=== PATIENT | female | born 1955 | race Caucasian/White ===

== ENCOUNTER 2022-10-22 12:07 | Emergency (ER) | payer OTHER, MEDICARE, SELFPAY ==
[2022-10-22 12:37] VITALS: BP 151/74; PULSE 89; RESP 18; TEMP 36.1; O2SAT 99
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
== END 2022-10-22 13:15 | disposition home or self-care (01) ==
PROVIDERS: Emergency Provider Nurse Practitioner Family; PCP Family Medicine
DX: H93.13 Tinnitus, bilateral (principal); R42 Dizziness and giddiness
CPT/HCPCS: 99213; G0463

== ENCOUNTER 2023-02-19 13:15 | Outpatient (RCR) | payer OTHER, SELFPAY ==
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
== END 2023-02-20 08:45 | disposition home or self-care (01) ==
LOC: ANHHIPT 13:15
PROVIDERS: PCP Physician Assistant Medical; Visit Provider Physician Assistant Medical
DX: S06.9XAD Unspecified intracranial injury with loss of consciousness status unknown, subsequent encounter (principal); H93.19 Tinnitus, unspecified ear; H81.12 Benign paroxysmal vertigo, left ear
CPT/HCPCS: 95992; 97110; 97112; 97162

== ENCOUNTER 2023-08-15 10:30 | Outpatient (RCR) | payer OTHER, SELFPAY ==
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
--- NOTE | 2023-05-22 17:09 | OPREHPOC ---
Outpatient Therapy Plan of Care This is a Multidisciplinary Plan of Care that may contain components documented by all disciplines (PT, OT, and ST.) PT Problem 1 PT Problem #1 Knowledge Deficit PT Goal 1 Goal Pt will be independent in HEP Target Visit 8 PT Problem 2 PT Problem #2 Impaired Functional ADLs PT Goal 1 Goal Pt will report ability to don socks with minimal symptoms or modification Target Visit 16 PT Problem 3 PT Problem #3 Impaired Sensation PT Goal 1 Goal Pt will report decreased dizziness by 50% Target Visit 8 PT Goal 2 Goal Pt will report decresaed dizziness by 75% PT Problem 4 PT Problem #4 Impaired Balance PT Goal 1 Goal Pt will demo improve static balance with eyes closed by 5 seconds in tandem stance
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
--- NOTE | 2023-07-16 11:31 | PTOPPROG ---
Assessment and note entered by Andria Cabezas, PT Assessment Status Progress Report Diagnosis dizziness and giddiness Therapy condition cervicalgia, stiffness cervical spine Onset Oct 18 2022 Subjective Information Pt reports her dizziness isn't bothering her at night anymore but is still not sleeping. Is just not falling asleep. Reports once is asleep is able to sleep. But is luck if gets 6 hours of sleep still. Is doing better leaning forward to get socks and shoes on. Deep bends are still difficult Walking her grandson ran up to her and tripped and she was able to keep both of them from falling. Still having ringing in the ears just as bad as ever Self-perceived improvement feels 60% better overall. Assessment PT Clinical Summary Pt has attended therapy consistently for vestibular rehab. Reports 60% improvement overall, has performed multiple electrotyper and habituation exercises, balance activities and eye exercises. Pt reports still having wooziness and difficulty with forward leaning. Cervical spine evaluated for possibility of cervicogenic dizziness as cervical torsion test to right was positive and pt demos restrictions in ROM and abnormal postures as well as increased resting muscle tone. Thus patient would benefit from continued therapy to address possible cervicogenic cause of dizziness. Plan of Care Interventions Electrical Stimulation,Gait Training,Hot Pack/Cold Pack,Manual Therapy,Neuro Re-education,Patient/ Caregiver Educati,Therapeutic Activities, Therapeutic Exercise PT Services Indicated Yes Treatment Frequency and 2x weekly 4 weeks Duration These treatments will address the objective and functional deficits as defined above. The patient will be advanced safely and appropriately in order for the patient to progress towards his/her prior level of function. Additional exercises will be introduced and as well as a comprehensive home exercise program upon discharge, if needed, ?to ensure carryover of functional gains achieved in the clinic. This treatment plan has been reviewed and agreement upon by the patient.
--- NOTE | 2023-08-15 11:08 | PTOPDC ---
Assessment and note entered by Andria Cabezas, PT Assessment Status Discharge Diagnosis dizziness and giddiness Onset Oct 18 2022 Subjective Information Pt reports dizziness, imbalance all gone . Hasn't had any wooziness since was bending over and putting things in the round and resolved very quickly. Is doing well with balance and eye exercises. Tandem with eyes closed is still hard. Reported Pain Level Pain Score 5: Self Report (Ear ringing) Assessment PT Clinical Summary Pt has attended therapy consistently for dizziness /giddiness that appeared cervicogenic in nature in addition to vestibular system. Pt reports today her symptoms of dizziness and wooziness are completely resolved. She has met all her therapy related goals with exception of eyes closed balance in tandem which she has for her homework. Pt HEP was updated and pt was discharged for meeting her functional and personal goals.
== END 2023-08-19 11:56 | disposition home or self-care (01) ==
LOC: ANHHIPT 10:30
PROVIDERS: PCP Physician Assistant Medical
DX: R42 Dizziness and giddiness (principal)
CPT/HCPCS: 97012; 97014; 97110; 97112; 97140; 97162; 97750; G0283

== ENCOUNTER 2024-06-30 11:00 | Outpatient (RCR) | payer OTHER, SELFPAY ==
--- NOTE | 2024-04-06 16:53 | PTOPEVAL1 ---
Assessment and note entered by Coty Colbert, PT Evaluation Information Assessment Status Evaluation Diagnosis Bilateral knee pain Therapy Conditions Weakness, pain, gait impairments Onset approx 1 month ago Subjective Information Pt reports increased in pain level to B knees, which is worse with standing, going up and down stairs. Uses ice and elevation to relieve the pain , occasional ibuprofen when the pain is too bad . Cutting daily walking distance and time due to sharp and achy pains. states that L knee feels like it locks and would not straighten as much as the R knee. Feels like it would buckle, one day its one knee and another day its the other knee. Reported Pain Level Pain Score 4,4: Self Report Assessment PT Clinical Summary Pt is a 69 female pt who presents to therapy with increased pain to B knees L > R, mild swelling to L knee; significant reduction in joint mobility, weakness, balance and gait impairments impacting her ability in going up/down stairs, and general ambulation task secondary to pain. Pt will benefit from skilled PT to improve independent functional mobility and reduce risk for falls. Plan of Care Interventions Electrical Stimulation,Gait Training,Manual Therapy,Neuro Re-education,Patient/Caregiver Education,Therapeutic Activities,Therapeutic Exercise PT Services Indicated Yes Treatment Frequency and 2-3x/wk x 15 visits Duration These treatments will address the objective and functional deficits as defined above. The patient will be advanced safely and appropriately in order for the patient to progress towards his/her prior level of function. Additional exercises will be introduced and as well as a comprehensive home exercise program upon discharge, if needed, ?to ensure carryover of functional gains achieved in the clinic. This treatment plan has been reviewed and agreement upon by the patient.
--- NOTE | 2024-05-13 14:50 | PTOPPROG ---
Assessment and note entered by Coty Colbert, PT Re-Eval Information Assessment Status Progress Diagnosis Bilateral knee pain ICD-10 Condition Codes (PT) M25.561,Pain in left knee M25.562,R26.9 Onset approx 1 month ago Subjective Information Pt reports increased in pain today, denies doing anything that might've aggravated it, daily walking routine is more difficult today. Assessment PT Clinical Summary Pt demos good progress with therapy, noted gains in strength, flexibility, core and hip stabilization. However, her knee pain has a flare up affecting his ambulation and standing activities. She will benefit from continued skilled therapy for pain management and improve standing balance and tolerance for safety in performing indep ambulation. Plan of Care Interventions Check Out for Orthotic/Pr,Electrical Stimulation, Gait Training,Hot Pack/Cold Pack,Intermittent Compression,Manual Therapy,Neuro Re-education, Patient/Caregiver Education,Therapeutic Activities, Therapeutic Exercise,Ultrasound Other Interventions IASTM PT Services Indicated Yes Treatment Frequency and 1-2x/wk x 10 visits Duration These treatments will address the objective and functional deficits as defined above. The patient will be advanced safely and appropriately in order for the patient to progress towards his/her prior level of function. Additional exercises will be introduced and as well as a comprehensive home exercise program upon discharge, if needed, ?to ensure carryover of functional gains achieved in the clinic. This treatment plan has been reviewed and agreement upon by the patient.
--- NOTE | 2024-05-20 15:09 | PCPTNOTE ---
Addendum: LATE ENTRY for treatment on 04/22/2024 Thera ex: -seated hamstrings stretches x 20 sec hold x 3 -unilateral bent knee fall outs x 20 each -sidelying straight lateral leg raises x 20 each -seated LAQs with ball squeezes x 20 each LE -wall squats attempted, able to perform 2, unable to continue due to discomfort -sit <> stand without BUE support x 5 -standing gastrocs stretches x 1 min hold x 3 Gait Training: -Gait training with heel lift trial on LLE amb on level surfaces 60ft x 2 around the gym without AD, cues for postural correction and weight shifting. Pt reports increased discomfort and does not want to wear the heel lift. -up/down 4 step stairs with B HRs, instructed in going sideways with cues for proper limb advancement and postural correction, core activation E-stim: Electrode placement: B knees. Stimulation Type: Premodulated Equipment setting: preset 1 Treatment Duration: 15 min In conjunction with: ice Reason for treatment: supine position elevated on pillows, nerve radiculopathy, pain management, soft tissue spasm/tightness Response for treatment: reduce pain, reduce edema, reduce soft tissue tightness/spasm
--- NOTE | 2024-06-28 16:54 | PTOPPROG ---
Assessment and note entered by Coty Colbert, PT Re-Eval Information Assessment Status Progress Diagnosis Bilateral knee pain ICD-10 Condition Codes (PT) M25.561,Pain in left knee M25.562,Difficulty Walking R26.2,R26.9 Onset approx 1 month ago Subjective Information Pt received gel injections and fluid removal of both knees which significantly improved pain levels. Stairs cont to be the most challenging task, standing is still limited to < 10 min. Assessment PT Clinical Summary Pt demos gains in strength and mobility after attending 14 sessions of Physical Therapy. However , she continue to demo instability and compensatory gait deviation to B knees when ambulating on uneven surfaces. She would like to continue further therapy visits to focus on gait training and balance to improve safety and prepare for her upcoming trip to [place] in July. Plan of Care Interventions Check Out for Orthotic/Pr,Electrical Stimulation, Gait Training,Hot Pack/Cold Pack,Intermittent Compression,Manual Therapy,Neuro Re-education, Patient/Caregiver Education,Therapeutic Activities, Therapeutic Exercise,Ultrasound Other Interventions IASTM PT Services Indicated Yes Treatment Frequency and 1-2x/wk x 10 visits Duration These treatments will address the objective and functional deficits as defined above. The patient will be advanced safely and appropriately in order for the patient to progress towards his/her prior level of function. Additional exercises will be introduced and as well as a comprehensive home exercise program upon discharge, if needed, ?to ensure carryover of functional gains achieved in the clinic. This treatment plan has been reviewed and agreement upon by the patient.
--- NOTE | 2024-07-07 12:04 | PCPTNOTE ---
This treatment is being continued on visit number [id number]. Please see documentation on both accounts to view progress. Completed interventions, outcomes, and problems have been marked as Inactive to facilitate the copying of the Care plan routine for recurring accounts.
== END 2024-07-05 23:59 | disposition home or self-care (01) ==
LOC: ANHHIPT 11:00
PROVIDERS: PCP Physician Assistant Medical; Visit Provider Physician Assistant Medical
DX: M25.561 Pain in right knee (principal); M25.562 Pain in left knee
CPT/HCPCS: 97014; 97016; 97110; 97116; 97140; 97161; 97530; 97750; G0283

== ENCOUNTER 2024-08-04 10:45 | Outpatient (RCR) | payer OTHER, SELFPAY ==
--- NOTE | 2024-07-07 12:02 | PCPTNOTE ---
The treatment documented on this account is a continuation of the treatment documented on visit number [id number]. Please see documentation on both accounts to view progress. The Plan of Care has been transitioned and updated within the new [id number]. I have addressed and agree with the discipline specific Problems, Interventions, and Goals for the current certification period. Completed interventions, outcomes, and problems have been marked as Inactive to facilitate the copying of the Care plan routine for recurring accounts.
== END 2024-08-04 14:03 | disposition home or self-care (01) ==
LOC: ANHHIPT 10:45
PROVIDERS: PCP Physician Assistant Medical; Visit Provider Physician Assistant Medical
DX: M25.561 Pain in right knee (principal); M25.562 Pain in left knee
CPT/HCPCS: 97014; 97110; 97140; 97530; G0283

== ENCOUNTER 2025-01-19 09:15 | Outpatient (RCR) | payer OTHER, SELFPAY ==
--- NOTE | 2024-11-25 12:18 | PTOPEVAL1 ---
Assessment and note entered by Coty Colbert, PT Evaluation Information Assessment Status Evaluation Subjective Information Pt c/o pain to L knee, underwent TKR 11/02/2024. Feeling stiffness, tightness when bending, prolonged standing and walking increases discomfort to the back of the thigh, feeling sore. She is able to perform functional tasks but in a slower pace and some difficulty. Yesterday is her first day back to walking at [facility] approx 30 min, was using 4WW initially after surgery, transitioned to cane a week and a half ago. Reported Pain Level Pain Score 2: Self Report Assessment PT Clinical Summary Pt presents to therapy for evaluation and treatment due to chronic OA of bilateral knees s/p L TKR on 11/02/2024. Demos significant limitation to active ROM and strength, balance and gait impairments requiring assistive device for safety with ambulation both for home and community. She will greatly benefit from skilled PT program to improve joint mobility, functional strength, improve stability, balance and gait in order to safely perform IADLs and community mobility indep. Plan of Care Interventions Check Out for Orthotic/Prosthetic,Electrical Stimulation,Gait Training,Hot Pack/Cold Pack, Intermittent Compression Pump,Manual Therapy,Neuro Re-education,Patient/Caregiver Education, Therapeutic Activities,Therapeutic Exercise,Other Other Interventions Patricioing, [facility] PT Services Indicated Yes Treatment Frequency and 2x/wk x 18 visits Duration These treatments will address the objective and functional deficits as defined above. The patient will be advanced safely and appropriately in order for the patient to progress towards his/her prior level of function. Additional exercises will be introduced and as well as a comprehensive home exercise program upon discharge, if needed, ?to ensure carryover of functional gains achieved in the clinic. This treatment plan has been reviewed and agreement upon by the patient.
--- NOTE | 2024-12-28 11:06 | PTOPPROG ---
Assessment and note entered by Coty Colbert, PT Progress Information Assessment Status Progress Diagnosis Z96.652 ICD-10 Condition Codes (PT) Pain in right knee M25.561,Pain in left knee M25. 562,Difficulty Walking R26.2,Abnormalities of gait and mobility R26.9,Aftercare following joint replacement surgery Z47.1 Subjective Information Pt reports movement is getting better but continue to feel stiff in the morning, pain with pressure when lying on the L side. Assessment PT Clinical Summary Pt has made good progress with therapy, demos gains in strength and mobility, improvement noted in the LEFS score from 33 moderate functional limitation to 56 indicating mild functional limitation. Noted improved gait pattern and independence without using a SC within household distances; Pt also partially met goals (STGs). However she continue to demo lacking stability and standing tolerance at this time, continue to demo deficits in active knee flexion and quads flexibility, therefore she would greatly benefit from continued skilled PT intervention to address current deficits and meet established correction goals (LTGs). Plan of Care Interventions Check Out for Orthotic/Prosthetic,Electrical Stimulation,Gait Training,Hot Pack/Cold Pack, Intermittent Compression Pump,Manual Therapy,Neuro Re-education,Patient/Caregiver Education, Therapeutic Activities,Therapeutic Exercise,Other Other Interventions Taping, IAST[facility] PT Services Indicated Yes Treatment Frequency and 2x/wk x 10 visits Duration These treatments will address the objective and functional deficits as defined above. The patient will be advanced safely and appropriately in order for the patient to progress towards his/her prior level of function. Additional exercises will be introduced and as well as a comprehensive home exercise program upon discharge, if needed, ?to ensure carryover of functional gains achieved in the clinic. This treatment plan has been reviewed and agreement upon by the patient.
--- NOTE | 2025-01-19 17:44 | PTOPDC ---
Assessment and note entered by Coty Colbert, PT Discharge Information Assessment Status Discharge Diagnosis Z96.652 ICD-10 Condition Codes (PT) Pain in right knee M25.561,Pain in left knee M25. 562,Difficulty Walking R26.2,Abnormalities of gait and mobility R26.9,Aftercare following joint replacement surgery Z47.1 Subjective Information Pt reports movement is getting better but continue to feel stiff in the morning, pain with pressure when lying on the L side. Reported Pain Level Pain Score 0: Self Report Assessment PT Clinical Summary Pt demos excellent progress with therapy for post op L TKA. Reports significant improvement in mobility and reduction in pain and swelling. Improved functional mobility with LEFS score of 69 . However, she continues to demo gait impairments secondary to R knee pain that is due for replacement. She will have an Ortho appointment sometime in March 2025. Pt is agreeable to DC at this time, reporting good compliance with pool exercises and daily stretches. Skilled PT discontinued. Plan of Care PT Services Indicated No
== END 2025-01-20 10:46 | disposition home or self-care (01) ==
LOC: ANHHIPT 09:15
PROVIDERS: PCP Physician Assistant Medical; Visit Provider Orthopaedic Surgery
DX: Z47.1 Aftercare following joint replacement surgery (principal); Z96.652 Presence of left artificial knee joint
CPT/HCPCS: 97016; 97110; 97112; 97116; 97140; 97161; 97530; 97750

== ENCOUNTER 2025-07-07 08:00 | Outpatient (RCR) | payer OTHER, SELFPAY ==
--- NOTE | 2025-04-27 13:36 | PTOPEVAL1 ---
Assessment and note entered by Andria Cabezas, PT Evaluation Information Assessment Status Evaluation Diagnosis S/P R knee replacement z96.651 ICD-10 Condition Codes (PT) Pain in right knee M25.561,Difficulty Walking R26. 2,Abnormalities of gait and mobility R26.9, Weakness R53.1,Encounter for other orthopedic aftercare Z47.89,Aftercare following joint replacement surgery Z47.1 Onset April 05, 2025 Subjective Information Pt reports this total knee is worse than her left one with bruising, swelling, and pain. Went home with a pain pump for a week. Had 2 weeks of home health, just graduated to cane from walker. Pt reports only takes her prescription for night time to sleep if she has been doing too much. Otherwise is using OTC pain medication. Is using ice once every couple of days Reported Pain Level Pain Score 3: Self Report Assessment PT Clinical Summary Pt is known to therapist from prior diagnosis and prior knee surgery on her LLE. Today she presents with a single point cane for ambulation with mild/ moderate deviation including decreased weight shift and stance time on RLE. She shows decreased ROM flexion especially (passive ROM 5-80), decreased strength quads with extensor lag, mild swelling, and moderate levels of pain. Pt will greatly benefit from physical therapy in order to address deficits and meet patient functional goals . Plan of Care Interventions Electrical Stimulation,Gait Training,Hot Pack/Cold Pack,Intermittent Compression Pump,Manual Therapy ,Neuro Re-education,Patient/Caregiver Education, Therapeutic Activities,Therapeutic Exercise,Self- Care/Home Management,Other Other Interventions Taping PT Services Indicated Yes Treatment Frequency and 1-3x weekly x 20 visits Duration These treatments will address the objective and functional deficits as defined above. The patient will be advanced safely and appropriately in order for the patient to progress towards his/her prior level of function. Additional exercises will be introduced and as well as a comprehensive home exercise program upon discharge, if needed, ?to ensure carryover of functional gains achieved in the clinic. This treatment plan has been reviewed and agreement upon by the patient.
--- NOTE | 2025-04-27 13:36 | OPREHPOC ---
Outpatient Therapy Plan of Care This is a Multidisciplinary Plan of Care that may contain components documented by all disciplines (PT, OT, and ST.) PT Problem 1 PT Problem #1 Knowledge Deficit PT Goal 1 Goal / Goal Update Pt will be independent in HEP Pt will verbalize understanding of diagnosis and prognosis Target Visit 10 PT Problem 2 PT Problem #2 Pain PT Goal 1 Goal / Goal Update Pt will report lowest pain rating at 0/10 to show improvement in overall discomfort Target Visit 10 PT Goal 2 Goal / Goal Update Pt will report greatest pain level at 3/10 or less to improve ADLs and activities Target Visit 20 PT Problem 3 PT Problem #3 Impaired Range of Motion PT Goal 1 Goal / Goal Update Pt will demonstrate passive ROM 0-100 right knee for improved mobility Target Visit 10 PT Goal 2 Goal / Goal Update Pt will demo AROM 0-120 right knee for improved mobility Target Visit 20 PT Problem 4 PT Problem #4 Impaired Gait PT Goal 1 Goal / Goal Update Pt will show gait equal stance time and step length R/L with or without AD Target Visit 10 PT Goal 2 Goal / Goal Update Pt will show normalized gait 2 min walk of 240 ft or greater without AD to return to PLOF Target Visit 20
--- NOTE | 2025-05-27 12:30 | PTOPPROG ---
Assessment and note entered by Andria Cabezas, PT Evaluation Information Assessment Status Progress Diagnosis S/P R knee replacement z96.651 ICD-10 Condition Codes (PT) Pain in right knee M25.561,Difficulty Walking R26. 2,Abnormalities of gait and mobility R26.9, Weakness R53.1,Encounter for other orthopedic aftercare Z47.89,Aftercare following joint replacement surgery Z47.1 Onset April 05, 2025 Subjective Information Reports rolling over last night hurt her knee. States usually has difficulty with this for rearranging pillows but last night something really hurt. Stayed sore after that, ended up getting up and taking tylenol for this. After that it was uncomfortable no matter which way was positioned. Normally was not requiring OTC medication daily. Most days doesn't need pain medication. Report pain around the knee cap today. Reports prior to that was able to walk around the [employer] without issue. Assessment PT Clinical Summary Pt has attended therapy consistently post total knee replacement, and shows multiple areas of improvement. Her pain reduced very quickly and maintained low levels until last night when she was rolling over in bed. Appears to be a mild muscle strain, was already improving by the time got to therapy the next day. Pt shows increased ROM from passive 5-75 to passive 0-107, quads muscle from 3- to 3+/5, and her 2 min walk test went from 196 to 280 ft. Pt has met multiple short term goals but has yet to meet all her longterm goals. Thus patient will benefit from continued therapy to continue progression and obtain maximal independence with least amount of pain. Plan of Care Interventions Electrical Stimulation,Gait Training,Hot Pack/Cold Pack,Intermittent Compression Pump,Manual Therapy ,Neuro Re-education,Patient/Caregiver Education, Therapeutic Activities,Therapeutic Exercise,Self- Care/Home Management,Other Other Interventions Taping PT Services Indicated Yes Treatment Frequency and Cont 2x weekly x 10 visits Duration These treatments will address the objective and functional deficits as defined above. The patient will be advanced safely and appropriately in order for the patient to progress towards his/her prior level of function. Additional exercises will be introduced and as well as a comprehensive home exercise program upon discharge, if needed, ?to ensure carryover of functional gains achieved in the clinic. This treatment plan has been reviewed and agreement upon by the patient.
--- NOTE | 2025-05-27 12:30 | OPREHPOC ---
Outpatient Therapy Plan of Care This is a Multidisciplinary Plan of Care that may contain components documented by all disciplines (PT, OT, and ST.) PT Problem 1 PT Problem #1 Knowledge Deficit PT Goal 1 Goal / Goal Update Pt will be independent in HEP Pt will verbalize understanding of diagnosis and prognosis Target Visit 10 Progress Met PT Problem 2 PT Problem #2 Pain PT Goal 1 Goal / Goal Update Pt will report lowest pain rating at 0/10 to show improvement in overall discomfort Target Visit 10 Progress Met PT Goal 2 Goal / Goal Update Pt will report greatest pain level at 3/10 or less to improve ADLs and activities Had met this goal until 05/25/25 when her knee became irritated the night prior to reevaluation Target Visit 20 Progress Partially Met PT Problem 3 PT Problem #3 Impaired Range of Motion PT Goal 1 Goal / Goal Update Pt will demonstrate passive ROM 0-100 right knee for improved mobility Target Visit 10 Progress Met PT Goal 2 Goal / Goal Update Pt will demo AROM 0-120 right knee for improved mobility Target Visit 20 PT Problem 4 PT Problem #4 Impaired Gait PT Goal 1 Goal / Goal Update Pt will show gait equal stance time and step length R/L with or without AD Target Visit 10 Progress Met PT Goal 2 Goal / Goal Update Pt will show normalized gait 2 min walk of 240 ft or greater without AD to return to PLOF Target Visit 20
--- NOTE | 2025-07-07 08:44 | PTOPDC ---
Assessment and note entered by Andria Cabezas, PT Evaluation Information Assessment Status Discharge Diagnosis S/P R knee replacement z96.651 ICD-10 Condition Codes (PT) Pain in right knee M25.561,Difficulty Walking R26. 2,Abnormalities of gait and mobility R26.9, Weakness R53.1,Encounter for other orthopedic aftercare Z47.89,Aftercare following joint replacement surgery Z47.1 Onset April 05, 2025 Subjective Information Pt states she does her exercises, goes to the pool on non-therapy days and does walking against current and exercise, has been walking outside as well up to a mile without issue. Feels her walking is getting better every day Improvement: 95% Reported Pain Level Pain Score 1: Self Report Assessment PT Clinical Summary Pt has attended therapy consistently post total knee replacement. She reports only pain up to 1/10 at worst after a lot of activity in the medial knee, otherwise is a 0/10. Reports she has returned to her normal work out routine, can walk a mile for fitness without AD, and has met all goals for therapy wiht exception of flexion to 120 degrees. However functionally with stairs, she is able to navigate steps normally without issue, thus related function is WNL. Pt has been educated to continue her heel slides to continue improvement of knee flexion for optimal motion. Pt is being release from physical therapy as she is independent in her function, has minimal pain, and is happy with her progress. Plan of Care PT Services Indicated No
== END 2025-07-07 08:51 | disposition home or self-care (01) ==
LOC: ANHHIPT 08:00
PROVIDERS: PCP Physician Assistant Medical; Visit Provider Orthopaedic Surgery
DX: Z96.651 Presence of right artificial knee joint (principal); M25.561 Pain in right knee; R26.2 Difficulty in walking, not elsewhere classified; R53.1 Weakness; Z47.89 Encounter for other orthopedic aftercare; Z47.1 Aftercare following joint replacement surgery
CPT/HCPCS: 97014; 97016; 97110; 97112; 97140; 97161; 97530; 97750; G0283